=== PATIENT | female | born 1985 | race Caucasian/White ===

== ENCOUNTER 2019-03-19 10:23 | Emergency (ER) | payer SELFPAY ==
[~2019-03-19] VITALS: Ht 165.1 cm; Wt 63.5 kg
[2019-03-19] MEDS ORDERED: INSU100V39 SQ (10:42)
[2019-03-19] MEDS ORDERED: INSU100V7 SQ (10:42)
[2019-03-19 11:05] LABS: *BILIRUBIN,URIN NEGATIVE (NEGATIVE); *BLOOD, URINE 1+ (NEGATIVE); *CLARITY,URINE CLOUDY (CLEAR); *COLOR,URINE YELLOW (YELLOW); *KETONES,URINE 3+ (NEGATIVE); *UROBILINOGEN,URINE 0.2 E.U./dl (NORMAL); LEUKOCYTE ESTERASE ,URINE NEGATIVE (NEGATIVE); NITRITE, URINE NEGATIVE (NEGATIVE); PH,URINE 5.5 (5.0-8.0)
[2019-03-19 11:09] LABS: UGLUCOSE 3+ (NEGATIVE)
[2019-03-19 11:11] LABS: *URINE HCG, QUAL NEGATIVE (NEGATIVE)
[2019-03-19 11:14] LABS: ALANINE AMINOTRANSFERASE 26 U/L (14-59); ALKALINE PHOSPHATASE 259 U/L (50-136); ASPARTATE AMINOTRANSFERASE 19 U/L (15-37); BILIRUBIN,DIRECT < 0.1 mg/dL (0.0-0.2); BILIRUBIN,TOTAL 0.6 mg/dL (0.2-1.0); CARBON DIOXIDE 22 mmol/L (21-32); CHLORIDE 94 mmol/L (98-107); CREATININE 1.2 mg/dL (0.6-1.3); POTASSIUM 3.9 mmol/L (3.5-5.1); TOTAL PROTEIN, SERUM 8.4 g/dL (6.4-8.2); UREA NITROGEN, BLOOD 19 mg/dL (7-18)
[2019-03-19 11:15] LABS: BASOPHILS # (AUTO) 0.1 K/uL (0.0-8.0); BASOPHILS % (AUTO) 1.2 % (0.0-2.0); EOSINOPHILS # (AUTO) 0.1 K/uL (0.0-0.7); EOSINOPHILS % (AUTO) 0.7 % (0.0-7.0); GLUCOSE 389 mg/dL (74-106); HEMATOCRIT 36.6 % (31.2-41.9); HEMOGLOBIN 12.4 g/dL (10.9-14.3); LYMPHOCYTES # (AUTO) 2.9 K/uL (20.0-40.0); LYMPHOCYTES % (AUTO) 33.2 % (20.5-51.5); MEAN CORPUSCULAR HEMOGLOBIN 30.9 uug (24.7-32.8); MEAN CORPUSCULAR HGB CONC 34 g/dL (32.3-35.6); MEAN CORPUSCULAR VOLUME 91.5 fL (75.5-95.3); MONOCYTES # (AUTO) 0.4 K/uL (2.0-10.0); MONOCYTES % (AUTO) 5.2 % (0.0-11.0); NEUTROPHILS # (AUTO) 5.2 K/uL (1.8-8.9); NEUTROPHILS % (AUTO) 59.7 % (38.5-71.5); PLATELET COUNT (AUTO) 539 K/uL (179-408); WHITE BLOOD COUNT (AUTO) 8.7 K/uL (3.8-11.8)
[2019-03-19 11:23] LABS: BACTERIA,URINE MANY /HPF (NONE SEEN); SQUAMOUS EPITHELIAL CELL,UR MANY /HPF (NONE SEEN)
[2019-03-19 12:11] LABS: ABG BASE EXCESS -2.3 mmol/L; ABG HCO3 22.4 mmol/L; ABG PCO2 38.2 mmHg (35.0-45.0); ABG PH 7.386 (7.350-7.450); ABG PO2 61.1 mmHg (75.0-100.0); ABG SITE LEFT BRACHIAL; ABG TOTAL HEMOGLOBIN 11.6 G/dL (12.0-16.0); COHb 1.9 % (0.5-1.5); MetHb 0.3 % (0.0-1.5); VENT MODE R.A.
[2019-03-19] MEDS ORDERED: IV NORMAL SALINE 1000 ML BAG IV ONE ×2 (12:15→13:30)
[2019-03-19 15:37] LABS: *BILIRUBIN,URIN 2+ (NEGATIVE); *CLARITY,URINE CLOUDY (CLEAR); *COLOR,URINE YELLOW (YELLOW); *KETONES,URINE 2+ (NEGATIVE); *UROBILINOGEN,URINE 0.2 E.U./dl (NORMAL); LEUKOCYTE ESTERASE ,URINE NEGATIVE (NEGATIVE); NITRITE, URINE NEGATIVE (NEGATIVE); PH,URINE 5.5 (5.0-8.0); UGLUCOSE 2+ (NEGATIVE)
--- NOTE | 2019-03-19 15:51 | NUR ---
Patient is resting comfortably on gurney with eyes closed, pending results and disposition. Patient is tearful@times, saying " I want to go home." MD notified.
[2019-03-19 15:58] LABS: CREATININE 0.8 mg/dL (0.6-1.3)
[2019-03-19 16:03] LABS: *BLOOD, URINE TRACE (NEGATIVE)
[2019-03-19 16:06] LABS: BACTERIA,URINE MANY /HPF (NONE SEEN); COARSE GRANULAR CASTS,URINE 0-3 /LPF; MUCUS,URINE MODERATE /LPF (0-FEW); SQUAMOUS EPITHELIAL CELL,UR MANY /HPF (NONE SEEN)
--- NOTE | 2019-03-19 17:00 | NUR ---
IV removed. Catheter intact and site benign. Pressure and 4x4 gauze applied to site. No bleeding noted.
--- NOTE | 2019-03-19 17:02 | NUR ---
Patient discharged to home in stable conditon. Written and verbal after care instructions given. Patient verbalizes understanding of instructions.
== END 2019-03-19 17:03 | disposition home or self-care (01) ==
LOC: ER 10:23
DX: E11.65 Type 2 diabetes mellitus with hyperglycemia (principal); E03.9 Hypothyroidism, unspecified; Z91.018 Allergy to other foods; Z91.048 Other nonmedicinal substance allergy status; Z79.4 Long term (current) use of insulin
CPT/HCPCS: 36415; 36600; 84703; 85025; 87077; 87086; A4663; J7030